=== PATIENT | female | born 1995 | race Caucasian/White ===

== ENCOUNTER 2017-07-22 18:20 | Emergency (ER) | payer BC ==
[~2017-07-22] VITALS: Ht 170.2 cm; Wt 90.7 kg
[2017-07-22 18:38] VITALS: BP 102/62
[2017-07-22 20:30] VITALS: BP 102/62
--- NOTE | 2017-07-23 08:51 | Diagnostic Imaging Report ---
Indication: Reason For Exam: SOB Technique: One view of the chest Comparison: Findings: Lungs and pleural spaces are clear. Heart size is normal Impression: No acute process
--- NOTE | 2017-07-26 04:50 | Emergency Room Report ---
History of Present Illness General Chief Complaint: Abnormal Labs Source: Patient Present Illness HPI Patient is a 22-year-old female who presented after having low blood sugar while in police custody. The patient was noted to have a blood sugar approximately 41 chest by EMS. Patient had a good response with D50. The patient stated that she had not been eating well. The patient denied any current complaints. She states that she had been using methamphetamine. She denies taking any medications for diabetes. She denies any current nausea or vomiting. The patient denies any suicidal thoughts or hallucinations. Allergies: Coded Allergies: No Known Allergies (Unverified , 07/22/17) Patient History Past Medical History: see triage record Last Menstrual Period: on depo shot Reviewed Nursing Documentation: PMH: Agreed, PSxH: Agreed Nursing Documentation-PMH Past Medical History: No Stated History Review of Systems All Other Systems: negative except mentioned in HPI Physical Exam Vital Signs Date Time Temp Pulse Resp B/P (MAP) Pulse Ox O2 Delivery O2 Flow Rate FiO2 07/22/17 18:17 119 18 102/62 100 Room Air 07/22/17 18:38 97.9 General Appearance: well appearing, no apparent distress, alert, obese Head: normocephalic, atraumatic ENT: hearing grossly normal, normal voice Neck: full range of motion, supple Respiratory: no respiratory distress, speaking full sentences Cardiovascular #1: normal inspection, regular rate, rhythm, no edema Gastrointestinal: normal inspection, normal bowel sounds, non tender, soft Musculoskeletal: no calf tenderness Neurologic: normal gait Psychiatric: mood/affect normal Skin: no rash Medical Decision Making Diagnostic Impression: Primary Impression: Substance abuse ER Course Patient presented for hypoglycemia. Differential diagnosis included was not limited to substance abuse, liver failure, malnutrition and among other. Patient has a benign exam and does not appear to require any further imaging or laboratory testing at this time. The patient was noted to have adequate blood sugar. Patient was given oral food which she tolerated well. The patient blood sugar was rechecked and continued to be normal. The patient declined laboratory testing. The patient is advised followup with outpatient mental health for substance abuse. The patient is advised to follow up with primary care doctor in 1-2 days. Patient is advised to return if any worsening condition or if any changes in status that are concerning. This report is dictated with TV[employer] software clerk software which may occasionally lead to discrepancies related to use of this software. Labs Test 07/22/17 19:00 Urine HCG, Qualitative Negative Last Vital Signs Date Time Temp Pulse Resp B/P (MAP) Pulse Ox O2 Delivery O2 Flow Rate FiO2 07/22/17 20:30 97.9 77 18 102/62 100 Room Air Status: improved Disposition: HOME, SELF-CARE Condition: Stable Referrals: NOT CHOSEN IPA/MD,REFERRING (PCP) Patient Instructions: Substance Use Disorder Mnai Trevino Jul 26, 2017 04:50
== END 2017-07-22 20:33 | disposition home or self-care (01) ==
LOC: EDBD 18:20 → EMR 18:58
DX: F15.10 Other stimulant abuse, uncomplicated (principal); E16.2 Hypoglycemia, unspecified; R06.02 Shortness of breath
CPT/HCPCS: 71045; 81025; 82962; 99283